=== PATIENT | male | born 1990 | race Caucasian/White ===

== ENCOUNTER 2018-07-17 21:51 | Emergency (ER) | payer BC ==
[~2018-07-17] VITALS: Ht 172.7 cm; Wt 74.8 kg
[2018-07-17 21:54] VITALS: Ht 172.7 cm; Wt 74.8 kg
--- NOTE | 2018-07-17 22:54 | ERD ---
ER Documentation Chief Complaint Chief Complaint HEART RATE WAS 48-52; FELT CONCERNED; NO OTHER S/S HPI This is a 28-year-old gentleman no significant past medical history who was checking into a rehabilitation facility and they noted that his heart rate was in the 40-50 range. The patient is asymptomatic. They sent him to the em ergency room for medical clearance. Patient does admit to using cocaine and methamphetamine. His last use was greater than 24 hours ago. He denies any chest pain or shortness of breath, no nausea vomiting headache or other symptoms at this time. He has never been told that his heart rate is low but has no cardiac history no family history of cardiac disease or sudden . ROS All systems reviewed and are negative except as per history of present illness. PMhx/Soc Medical and Surgical Hx: pt denies Medical Hx, pt denies Surgical Hx Hx Alcohol Use: No Hx Substance Use: Yes (cocaine) Hx Tobacco Use: No Smoking Status: Former smoker FmHx Family History: No diabetes Physical Exam Vitals Vital Signs Date Temp Pulse Resp B/P (MAP) Pulse Ox O2 O2 Flow FiO2 Time Delivery Rate 07/17/18 48 17 134/71 100 Room Air 23:17 (92) 07/17/18 98.7 49 19 146/69 100 21:54 (94) Physical Exam General: Well developed, well nourished, no acute distress Head: Normocephalic, atraumatic. Eyes: Pupils equally reactive, EOM intact ENT: Moist mucous membranes Neck: Supple, no lymphadenopathy Respiratory: Lungs clear bilaterally, no distress Cardiovascular: RRR, no murmurs, rubs, or gallops Abdominal: Soft, non-tender, non-distended, no peritoneal signs : Deferred MSK: No edema, no unilateral swelling, 5/5 strength Neurologic: Alert and oriented, moving all extremities, normal speech, no focal weakness, no cerebellar signs Skin: No rash Psych: Normal mood Result Diagram: 07/17/186 07/17/182215 Results 24 hrs Laboratory Tests Test 07/17/18 22:16 White Blood Count 6.3 10^3/ul Red Blood Count 5.10 10^6/ul Hemoglobin 14.7 g/dl Hematocrit 45.9 % Mean Corpuscular Volume 90.0 fl Mean Corpuscular Hemoglobin 28.8 pg Mean Corpuscular Hemoglobin Concent 32.0 g/dl Red Cell Distribution Width 14.7 % Platelet Count 231 10^3/UL Mean Platelet Volume 11.1 fl Immature Granulocytes % 0.200 % Neutrophils % 44.7 % Lymphocytes % 45.7 % Monocytes % 7.5 % Eosinophils % 1.4 % Basophils % 0.5 % Nucleated Red Blood Cells % 0.0 /100WBC Immature Granulocytes # 0.010 10^3/ul Neutrophils # 2.8 10^3/ul Lymphocytes # 2.9 10^3/ul Monocytes # 0.5 10^3/ul Eosinophils # 0.1 10^3/ul Basophils # 0.0 10^3/ul Nucleated Red Blood Cells # 0.0 10^3/ul Sodium Level 143 mmol/L Potassium Level 4.4 mmol/L Chloride Level 101 mmol/L Carbon Dioxide Level 33 mmol/L Anion Gap 9 Blood Urea Nitrogen 11 mg/dl Creatinine 0.94 mg/dl Est Glomerular Filtrat Rate mL/min > 60 mL/min Glucose Level 87 mg/dl Calcium Level 9.9 mg/dl Troponin I < 0.012 ng/ml Procedures/MDM EKG, MONITORS, & DIAGNOSTIC IMAGING: EKG: I reviewed and interpreted a 12-lead EKG. Rhythm: Sinus bradycardia of rate of 42 Normal QRS and QTc ST Changes: No contiguous ST segment elevations T waves: No contiguous T wave inversions Impression: No evidence of acute cardiac ischemia LAB INTERPRETATION: I reviewed the laboratory testing and it shows no evidence of acute process MEDICAL DECISION MAKING: The patient presents to the emergency room with asymptomatic sinus bradycardia. The patient has no signs or symptoms concerning for cardiac etiology, near syncope or clinically significant sinus bradycardia. The patient does use substances and would benefit from laboratory testing to rule out electrolyte abnormality or cardiac ischemia but low clinical concern for that process. Patient exhibits no signs or symptoms concerning for emergent medical condition. The patient was advised to follow-up with primary care physician for sinus bradycardia may need to see a housing inspector at some point but it appears that he is a young healthy and in shape 28-year-old with a low heart rate which would be within normal limits. ER COURSE: * The patient continues to be asymptomatic during ER course. Laboratory testing and diagnostic imaging including EKG are unremarkable * At this point the patient can be safely discharged home with primary care follow-up. Return precautions were discussed and understood. CONSULTATION: None DISPOSITION PLAN: The patient does not have an identifiable emergent medical condition that warrants inpatient hospitalization at this time. The patient is deemed safe for discharge with outpatient follow-up. We discussed follow up with the patient's primary care doctor within 24 to 48 hours as needed. We also discussed return to the emergency room for worsening symptoms or worsening condition. Outpatient referral: Primary care physician as noted above Discharge Medications: None required Departure Diagnosis: Primary Impression: Sinus bradycardia by electrocardiogram Additional Impression: Polysubstance abuse Condition: Stable MAEGAN HART MD Jul 17, 2018 22:54
[2018-07-17 23:17] VITALS: BP 134/71; PULSE 48; RESP 17
== END 2018-07-17 23:21 | disposition home or self-care (01) ==
LOC: E/R 21:51
DX: R00.1 Bradycardia, unspecified (principal); F19.10 Other psychoactive substance abuse, uncomplicated; Z87.891 Personal history of nicotine dependence
CPT/HCPCS: 80048; 84484; 85025; 93005